=== PATIENT | male | born 1985 | race Caucasian/White ===

== ENCOUNTER 2017-09-04 11:27 | Emergency (ER) | payer OTHER ==
[2017-09-04 11:37] VITALS: BP 142/89; PULSE 93; TEMP 97.8; BMI 27.4
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
[2017-09-04] MEDS ORDERED: KETOROLAC TROMETHAMINE 30 MG/1 ML VIAL IM ONE (14:19)
[2017-09-04] MEDS ORDERED: IBUPROFEN 400 MG TABLET (FP) PO ONE ×2 (14:23→14:24)
== END 2017-09-04 14:27 | disposition home or self-care (01) ==
LOC: JERFT 11:27
DX: M54.5 Low back pain (principal); M54.6 Pain in thoracic spine; X50.1XXA Overexertion from prolonged static or awkward postures, initial encounter; X50.9XXA Other and unspecified overexertion or strenuous movements or postures, initial encounter; Y92.512 Supermarket, store or market as the place of occurrence of the external cause; Y99.8 Other external cause status
CPT/HCPCS: 72128-TC; 72131-TC; 99281-25